=== PATIENT | male | born 1980 ===

== ENCOUNTER 2023-05-22 06:00 | Day surgery (SDC) | payer OTHER ==
[~2023-05-22] VITALS: Ht 167.6 cm; Wt 74.4 kg
[2023-05-22] MEDS ORDERED: NEURONTIN300 MG PO (09:27)
[2023-05-22] MEDS ORDERED: TRAM1TAB98 PO (09:27)
== END 2023-05-22 13:55 | disposition home or self-care (01) ==
LOC: CIR.AMB 06:00
PROVIDERS: ATTEND Surgery
DX: D12.8 Benign neoplasm of rectum (principal); D12.9 Benign neoplasm of anus and anal canal; K62.89 Other specified diseases of anus and rectum